=== PATIENT | female | born 1975 | race Hispanic/Latino ===

== ENCOUNTER 2018-03-04 10:45 | Emergency (ER) | payer OTHER ==
[~2018-03-04] VITALS: Ht 149.9 cm; Wt 79.4 kg
[2018-03-04] MEDS ORDERED: LEXAPRO10 MG PO (11:35)
[2018-03-04] MEDS ORDERED: LEVOTHYROXINE75 MCG PO (11:35)
[2018-03-04] MEDS ORDERED: ATORVASTATIN CA40 MG PO (11:35)
[2018-03-04] MEDS ORDERED: LANTUS 3ML100 UNITS/ (11:35)
[2018-03-04] MEDS ORDERED: LISINOPRIL10 MG PO (11:35)
== END 2018-03-04 13:59 | disposition home or self-care (01) ==
LOC: FSED 10:45
DX: R20.2 Paresthesia of skin (principal); E11.40 Type 2 diabetes mellitus with diabetic neuropathy, unspecified; I10 Essential (primary) hypertension
CPT/HCPCS: 70450; 80053; 85025; 93005; 99283

== ENCOUNTER 2025-01-06 18:43 | Emergency (ER) | payer BC, OTHER ==
[~2025-01-06] VITALS: Ht 152.4 cm; Wt 73.5 kg
[~2025-01-06 18:43] MED LIST: ATORVASTATIN CA40 MG PO; LANTUS 3ML100 UNITS/; LEVOTHYROXINE75 MCG PO; LEXAPRO10 MG PO; LISINOPRIL10 MG PO
[2025-01-06] MEDS ORDERED: TAMIFLU75 MG PO (19:43)
[2025-01-06] MEDS ORDERED: VENTOLIN HFA18 GM INH (19:44)
[2025-01-06] MEDS ORDERED: CORICIDIN HBP1 EAC3 PO (19:47)
[2025-01-06 20:20] VITALS: PULSE 95; RESP 18; TEMP 98.4
[2025-01-06 20:36] VITALS: BP 170/95; PULSE 95; RESP 18; TEMP 98.4; O2SAT 95
== END 2025-01-06 20:42 | disposition home or self-care (01) ==
LOC: FSED 19:05
DX: R05.9 Cough, unspecified (principal); J10.1 Influenza due to other identified influenza virus with other respiratory manifestations; J40 Bronchitis, not specified as acute or chronic; E11.9 Type 2 diabetes mellitus without complications; E78.5 Hyperlipidemia, unspecified; E03.9 Hypothyroidism, unspecified; Z11.52 Encounter for screening for COVID-19
CPT/HCPCS: 0223U; 83518; 87400; 99283

== ENCOUNTER 2025-01-16 15:09 | Emergency (ER) | payer BC ==
[~2025-01-16] VITALS: Ht 152.4 cm; Wt 72.2 kg
[~2025-01-16 15:09] MED LIST changes: +CORICIDIN HBP1 EAC3 PO; +TAMIFLU75 MG PO; +VENTOLIN HFA18 GM INH
[2025-01-16 16:03] VITALS: PULSE 109; RESP 18; TEMP 98.8; O2SAT 95
[2025-01-16] MEDS: KETOROLAC TROMETHAMINE 60 MG/2 ML VIAL IM ONE (17:14)
[2025-01-16] MEDS ORDERED: BENZONATATE200 MG PO (17:59)
[2025-01-16 18:07] VITALS: BP 140/84; PULSE 102; RESP 16
== END 2025-01-16 18:09 | disposition home or self-care (01) ==
LOC: FSED 16:45
DX: R05.9 Cough, unspecified (principal); J40 Bronchitis, not specified as acute or chronic; J06.9 Acute upper respiratory infection, unspecified; E11.9 Type 2 diabetes mellitus without complications; E78.5 Hyperlipidemia, unspecified; E03.9 Hypothyroidism, unspecified; Z11.52 Encounter for screening for COVID-19
CPT/HCPCS: 0223U; 71046; 83518; 87400; 87420; 99283; J1885